=== PATIENT | male | born 1960 | race Caucasian/White ===

== ENCOUNTER 2024-05-14 19:41 | Emergency (ER) | payer BC ==
[2024-05-14 19:54] VITALS: TEMP 98.4; BMI 28.1
[2024-05-14 21:31] LABS: BASO % 0.5 % (0-2.0); EOS % 2.2 % (0-4.5); HEMATOCRIT 31.4 % (35.4-49); HEMOGLOBIN 10.7 GM/dL (11.7-16.9); LYMPH % 22.9 % (8-40); MCH 28.7 pg (25.7-33.7); MCHC 34.1 g/dl (32.0-35.9); MEAN CELL VOLUME 84.2 fl (80-96); MEAN PLT VOLUME 6.7 fl (7.5-11.1); MONO % 9.5 % (3.8-10.2); NEUT % 64.9 % (42.8-82.8); PLATELET COUNT 206 10^3/uL (134-434); RBC 3.73 M/mm3 (4.00-5.60); RDW 14.1 % (11.9-15.9); WHITE BLOOD COUNT 7.2 K/mm3 (4.0-10.0)
[2024-05-14 21:33] LABS: VENOUS BASE EXCESS 0.6 mmol/L (-2-2); VENOUS O2 SATURATION 83.3 % (70-80); VENOUS PCO2 46.2 mmHg (38-52); VENOUS PH 7.372 (7.310-7.410)
[2024-05-14 21:48] LABS: POTASSIUM 4.3 mmol/L (3.5-5.1)
[2024-05-14 21:52] LABS: ALBUMIN 3.5 g/dl (3.4-5.0); BLOOD UREA NITROGEN 38.9 mg/dL (7-18)
[2024-05-14 21:55] LABS: CREATININE 2.7 mg/dL (0.55-1.3)
[2024-05-14 21:56] LABS: BILIRUBIN,TOTAL 0.4 mg/dL (0.2-1)
[2024-05-14 21:57] LABS: TOT PROT 6.8 g/dl (6.4-8.2)
[2024-05-15 08:35] VITALS: BP 173/91; PULSE 71; RESP 18
== END 2024-05-15 02:00 | disposition home or self-care (01) ==
LOC: JER 19:41
DX: R20.0 Anesthesia of skin (principal); I10 Essential (primary) hypertension; R25.1 Tremor, unspecified
CPT/HCPCS: 36415; 70450-TC; 80053; 82803; 83605; 84484; 85025; 93005; 93010; 99285-25